=== PATIENT | male | born 1965 | race Caucasian/White ===

== ENCOUNTER 2020-04-04 11:04 | Day surgery (SDC) | payer OTHER ==
[2020-04-04] MEDS ORDERED: LACTATED RINGERS 1,000 ML IV ONE ×2 (11:11→14:23)
[2020-04-04] MEDS ORDERED: CEFAZOLIN SODIUM IN 0.9 % NACL 2 GM/100 ML BAG IV ONE (11:21)
--- NOTE | 2020-04-04 11:26 | ANESTHESIA ---
Pre-Anesthesia VS, & Labs - Diagnosis left carpal and cubital tunnel syndrome - Procedure left carpal and cubital tunnel release Height: 6 ft Weight (kg): 79.38 kg Body Mass Index: 23.7 BMI Classification: Healthy weight - NPO >8 hours - Lab Results Lab results reviewed: Yes Home Medications and Allergies Home Medications: Ambulatory Orders Lactobacillus Acidophilus [Probiotic Acidophilus] 1.5 mg PO 03/30/20 Multivitamin 1 each PO 03/30/20 Lactobacillus Acidophilus [Probiotic Acidophilus] 1.5 mg PO 03/30/20 Multivitamin 1 each PO 03/30/20 Allergies/Adverse Reactions: Allergies Allergy/AdvReac Type Severity Reaction Status Date / Time acetaminophen [From Percocet] AdvReac Intermediate Unknown Verified 03/30/20 15:38 oxycodone [From Percocet] AdvReac Intermediate Unknown Verified 03/30/20 15:38 Anes History & Medical History - Anesthetic History Anesthesia Complications: reports: No previous complications Family history of Anesthesia Complications: Denies Family history of Malignant Hyperthermia: Denies - Medical History Cardiovascular: reports: Hypertension (not on any meds) Pulmonary: reports: None Gastrointestinal: reports: None Urinary: reports: None Musculoskeletal: reports: Other Endocrine/Autoimmune: reports: None Skin: reports: None - Surgical History General: Colonoscopy, Other Exam General: Alert, Oriented x3, Cooperative, No acute distress Dental: WNL Neck Mobility: Normal Mallampati classification: II Respiratory: Lungs clear, Normal breath sounds, No respiratory distress Cardiovascular: Regular rate, Normal S1, Normal S2 Plan Anesthesia Type: General Consent for Procedure(s) Verified and Reviewed: Yes Code Status: Attempt Resuscitation ASA classification: 2-Mild systemic disease Is this case an emergency?: No
[2020-04-04] MEDS ORDERED: ePHEDrine 50 MG/ML VIAL IVP PRN (11:56)
[2020-04-04] MEDS ORDERED: ONDANSETRON 4 MG/2 ML VIAL IVP PRN ×2 (11:56→14:32)
[2020-04-04] MEDS ORDERED: ATROPINE ABBOJECT 1 MG/10 ML SYRINGE IVP PRN (11:56)
[2020-04-04] MEDS ORDERED: METOCLOPRAMIDE 10 MG/2 ML VIAL IVP PRN (11:56)
[2020-04-04] MEDS ORDERED: ACETAMINOPHEN 1,000 MG/100 ML 100 ML IV ONE (11:56)
[2020-04-04] MEDS ORDERED: fentaNYL 100 MCG/2 ML VIAL IVP PRN (11:56)
[2020-04-04] MEDS ORDERED: NALOXONE 0.4 MG/ML VIAL IVP PRN (11:56)
[2020-04-04] MEDS ORDERED: HYDROmorphone 0.5 MG/0.5 ML SYRINGE IVP PRN (11:56)
[2020-04-04] MEDS ORDERED: LACTATED RINGERS 1,000 ML IV SCH (12:00)
[2020-04-04] MEDS ORDERED: BUPIVACAINE 0.25% PF 30 ML VIAL ONE (12:31)
[2020-04-04] MEDS ORDERED: DEXAMETHASONE 4 MG/ML VIAL IVP ONE (12:35)
[2020-04-04] MEDS ORDERED: ePHEDrine 50 MG/ML VIAL IVP ONE (12:35)
[2020-04-04] MEDS ORDERED: fentaNYL 100 MCG/2 ML VIAL IVP ONE (12:35)
[2020-04-04] MEDS ORDERED: MIDAZOLAM 2 MG/2 ML VIAL IVP ONE (12:35)
[2020-04-04] MEDS ORDERED: PROPOFOL 200 MG/20 ML VIAL IVP ONE (12:35)
[2020-04-04] MEDS ORDERED: SUCCINYLCHOLINE 200 MG/10 ML VIAL IVP ONE (12:35)
[2020-04-04] MEDS ORDERED: ONDANSETRON 4 MG/2 ML VIAL IVP ONE (12:35)
[2020-04-04] MEDS ORDERED: BUPIVACAINE 0.25% PF 30 ML VIAL SUBQ ONE ×2 (13:15)
[2020-04-04] MEDS ORDERED: oxyCODONE 5 MG TABLET PO PRN (14:32)
--- NOTE | 2020-04-04 14:41 | OPERATIVE REPORT ---
Operative Report - Other Other Information/Narrative: Date of Surgery: 04 April 2020 Pre-Op Diagnosis: Left Carpal tunnel syndrome. 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 Left cubital tunnel release Postop Diagnosis: Same Primary Surgeon: Haris Rodriguez Secondary Surgeon: Nasir Bush Complications: None Tourniquet Time: 65 minutes EBL: 5 cc Findings: The ulnar nerve was swollen and reactive in the cubital tunnel. 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 Nerve conduction studies showed severe cubital tunnel syndrome and carpal tunnel syndrome. The majority of his complaints are in association with a cubital tunnel syndrome. I explained that he may not get complete relief and congregational of normal motor function and strength after surgery. He did have significant wasting of the muscles in his hand and due to the prolonged nature of his symptoms we may not be able to restore this. The risks, benefits, and alternatives were discussed. Risks include instability of the ulnar nerve pain, bleeding, infection, damage to nearby structures, numbness, pillar pain, lack of symptom relief, need for further surgery, DVT, PE, stroke, and . Written consent was obtained. The patient was met in the preoperative holding on the day of the procedure. Operative extremity was signed. Consent was verified. They desire to proceed. They were brought to the operating room and placed in the supine position. A well-padded forearm tourniquet was applied. They were prepped and draped in the standard fashion. A surgical timeout was held will be confirmed the patient procedure, identity, allergies, antibiotics, images and laterality. All were in agreement we proceeded. An Esmarch was used to exsanguinate the limb and the tourniquet was elevated to 250 mmHg. A 3cm longitudinal incision was made in line with the ulnar border of the ring finger starting at Alt[place]irano's Cardinal line distally. This was just radial to the hook of the hamate. Bipolar electrocautery was used at the skin edge. Sharp dissection was brought down through the palmar fascia. Retractors were placed. The transverse carpal ligament was identified and a knife was used to separate it. The contents of the carpal tunnel were seen. Knife dissection was used to release the ligament as far proximal as could be visualized. Long handled Metzenbaum scissors were then used to create a pocket just superficial to the transverse carpal ligament and a retractor was placed. I then used a long handled Metzenbaum with the tips pointed ulnarly to complete the release 2 cm into the antebrachial fascia. Retractors were then moved distally and I confirmed complete release in the appearance of fat in the palm. A freer elevator was used to confirm complete release both proximally and distally. The wound was packed with a moist gauze and then I moved up to the elbow. A 5 cm incision was made along the course of the ulnar nerve just posterior to the medial epicondyle. Scissor dissection was carried out and branches of the medial antebrachial cutaneous nerve were identified and protected. Scissor dissection was carried down to the cubital tunnel and it was opened just anterior to the attachment of the ligament on the olecranon. I took care to stay posterior to prevent future subluxation of the nerve. The ulnar nerve was identified and the cubital tunnel was dissected distally very carefully. I encountered the initial sensory branch to the capsule and the motor branches to the FCU and protected them. I sharply transected the fascia over the FCU to gain further access to the ulnar nerve as it passed deep into the muscle. blunt dissection was used to dissect the muscle and exposed the nerve further. I then released the fascia deep to the muscle and ensured the nerve was freely mobile distally without any compression points. I then moved proximal and followed the nerve up the medial arm a few centimeters taking care to protect any cutaneous branches. I freed the nerve proximally 4 cm from the medial epicondyle. I took care to leave as many veins as possible attached to the nerve. I then inspected deep to the nerve an did not find any protruding osteophytes. The course of the nerve was smooth and no bony resection was necessary. I then irrigated the wound copiously and took him through a full range of motion. The nerve had no compression points and remained stable in the groove. I then loosely approximated the fascia to the posterior soft tissues to provide additional support. I again moved him through a full range of motion and the nerve glided smoothly without instability or compression points. The wound was then closed in a layered fashion with 2-0 Vicryl in the dermis and running Monocryl in the skin. A sterile dressing was then applied and a bulky dressing was placed with the elbow nearly fully extended. The carpal tunnel wound was closed with 4-0 nylon in a horizontal mattress configuration. 15 cc total of local anesthetic was placed about both incisions. A sterile bulky dressing and splint was applied. He was awakened and transferred to the recovery room. Postoperative plan: Gentle range of motion from 0-2 weeks. Follow-up at 2 weeks to cut Monocryl suture ends and assess the wound. I will remove the bulky dressing at that time and advance range of motion. No strengthening until 6 weeks.
--- NOTE | 2020-04-04 14:42 | ANESTHESIA POST OP EVALUATION ---
Anesthesia Post Eval - Post Anesthesia Eval Vitals: Last Vital Signs Temp 37 C 04/04/20 14:34 Pulse 101 H 04/04/20 14:39 Resp 22 04/04/20 14:39 BP 150/105 H 04/04/20 14:39 Pulse Ox 100 04/04/20 14:39 CV Function Including HR & BP: positive: Stable Pain Control: positive: Satisfactory Nausea & Vomiting: positive: Negative Mental Status: positive: Baseline Respiratory Status: Airway Patent Hydration Status: Satisfactory Anesthesia Complications: positive: None
[2020-04-04 15:02] VITALS: BP 141/95
== END 2020-04-04 11:05 | disposition home or self-care (01) ==
LOC: SDS 11:04
PROVIDERS: ATTEND Orthopaedic Surgery
PROC: 01N50ZZ Release Median Nerve, Open Approach (ICD-10-PCS; principal; 2020-04-04 12:45)
DX: G56.02 Carpal tunnel syndrome, left upper limb (principal); G56.22 Lesion of ulnar nerve, left upper limb; I10 Essential (primary) hypertension; Z87.891 Personal history of nicotine dependence